=== PATIENT | male | born 1990 | race African-American/Black ===

== ENCOUNTER 2022-12-29 17:53 | Emergency (ER) | payer OTHER ==
[2022-12-29] MEDS ORDERED: TETRACAINE HCL 0.5% 4ML OPTH ONE (18:02)
[2022-12-29] MEDS ORDERED: FLUORESCEIN SODIUM 1 MG/WRAP ONE (18:02)
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
[2022-12-29 18:47] LABS: Absolute Lymphocytes (CBC) 1.6 K/uL (0.7-4.9); Hematocrit 43.8 % (39.6-49.0); Lymphocytes % 14.4 % (15.3-44.8); MCV 88.6 fL (80-100); MPV 9.8 fL (7.6-11.3); RBC Red Blood Cell Count 4.94 M/uL (4.33-5.43)
[2022-12-29] MEDS ORDERED: ONDANSETRON 4 MG/2 ML VIAL ONE (18:47)
[2022-12-29] MEDS ORDERED: MORPHINE 4 MG/ML SYR ONE (18:47)
[2022-12-29] MEDS ORDERED: NA CHLORIDE 0.9% 1,000 ML ONE (18:47)
[2022-12-29 19:02] LABS: Potassium 4.1 mEq/L (3.5-5.1)
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
[2022-12-29 21:16] VITALS: TEMP 98.2
[2022-12-29 21:18] VITALS: BP 124/88; O2SAT 98
== END 2022-12-29 21:11 | disposition short-term general hospital (02) ==
LOC: ER 17:53
DX: H53.131 Sudden visual loss, right eye (principal); S00.83XA Contusion of other part of head, initial encounter; Y09 Assault by unspecified means; I10 Essential (primary) hypertension
CPT/HCPCS: 96361; 85025; 80048; 36415; 86900; 86850; 86901; 70450; 72125; 71260; 70486; 76377; 74177; 96375; 96374; 99285; Q9967; J2405; J7030